=== PATIENT | male | born 1925 | race Caucasian/White ===

== ENCOUNTER → 2016-09-27 | Outpatient (CLI) | payer OTHER, MEDICARE ==
[~2016-09-27] MED LIST: ACETAMINOPHEN-1 EAC1 PO; ALEVE220 M1; CENTRUM SILVER1 EAC1; CLARITIN10 M2 PO; FLUNISOLIDE25 M1; GLUCOSAMINE1000 MG PO; HYDROCODONE-APA1 TA1 PO; LISINOPRIL20 MG PO; NORCO 5-325 TA1 EACH PO; OMEPRAZOLE20 M2 PO; PROTONIX40 M1 PO; SIMVASTATIN40 MG PO
== END ==
LOC: NUC 09:37
DX: C61 Malignant neoplasm of prostate (principal); M19.90 Unspecified osteoarthritis, unspecified site